=== PATIENT | female | born 1960 | race Caucasian/White ===

== ENCOUNTER 2017-01-27 15:47 | Observation (INO) | payer OTHER ==
[~2017-01-27] VITALS: Ht 167.6 cm; Wt 85.0 kg
[~2017-01-27 15:47] MED LIST: TAMO20TA4 PO; VITRTAB3 PO
[2017-01-27 15:48] VITALS: BP 134/80; PULSE 78; RESP 20; TEMP 98.6; O2SAT 99
[2017-01-27 16:29] LABS: AUTOMATED NEUTROPHIL # 4.8 TH/MM3 (1.8-7.7); BASOPHIL # 0.1 TH/MM3 (0-0.2); BASOPHIL % 0.9 % (0.0-2.0); EOSINOPHIL # 0.3 TH/MM3 (0-0.4); EOSINOPHIL % 3.8 % (0.0-4.0); HEMATOCRIT 38.5 % (35.0-46.0); HEMO FLAGS DIFF FINAL; LYMPH % 29.1 % (9.0-44.0); LYMPHOCYTE # 2.4 TH/MM3 (1.0-4.8); MEAN CELL VOLUME 79.7 FL (80.0-100.0); MEAN CORPUSCULAR HEMOGLOBIN 27.5 PG (27.0-34.0); MEAN CORPUSCULAR HGB CONC 34.5 % (32.0-36.0); MONO % 7.8 % (0.0-8.0); NEUT % 58.4 % (16.0-70.0); PLATELET COUNT 252 TH/MM3 (150-450); RED BLOOD COUNT 4.82 MIL/MM3 (4.00-5.30); RED CELL DISTRIBUTION WIDTH 13.8 % (11.6-17.2); WHITE BLOOD COUNT 8.2 TH/MM3 (4.0-11.0)
[2017-01-27 16:37] LABS: ANION GAP 10 MEQ/L (5-15); BICARBONATE 24.7 MEQ/L (21.0-32.0); BLOOD UREA NITROGEN 11 MG/DL (7-18); CHLORIDE 105 MEQ/L (98-107); GLOMERULAR FILTRATION RATE 71 ML/MIN (>89); POTASSIUM 3.5 MEQ/L (3.5-5.1); SODIUM (NA) 140 MEQ/L (136-145)
[2017-01-27 16:44] LABS: CREATINE KINASE 57 U/L (26-192)
[2017-01-27] MEDS ORDERED: [UNRECOGNIZED DRUG - CODE] PO (17:37)
[2017-01-27] MEDS ORDERED: LISI20TA PO (17:38)
[2017-01-27] MEDS ORDERED: KETOROLAC TROMETHAMINE 30 MG/ML (IVP) VIAL IV PUSH ONE (18:00)
--- NOTE | 2017-01-27 18:00 | PD ---
HPI Chief Complaint: Cardiac Complaint Time Seen by Provider: 17:50 Travel History International Travel<30 days: No Contact w/Intl Traveler<30days: No Traveled to known affect area: No History of Present Illness HPI Patient's 56-year-old female presenting to emergency evaluation of left anterior chest wall pain that radiates to her left arm. Patient states he started last night, waking her up from her sleep. Patient reports the pain as a 6 out of 10 and describes it as sore and aching. Patient states the pain is worse with respirations.. She denies any shortness of breath, nausea, vomiting , headache, abdominal pain. Patient states that last night she took 2 Xanax 0.5 mg tablets tramadol in order to relieve the pain. This was unsuccessful. Patient's past medical history significant for breast cancer, she is currently on tamoxifen. She denies any history of DVT or PE. Family history is significant, her father of a heart attack at age 44, mother with coronary artery disease and stent placement. PFSH Past Medical History Asthma: Yes Blood Disorders: No Heart Rhythm Problems: No Cancer: Yes (RIGHT BREAST CA, LUMPECTOMY 2013, RADIATION/TAMOXIFEN) Cardiac Catheterization: No High Cholesterol: Yes Chemotherapy: No (tomaxifan for r breast Ca+) Congestive Heart Failure: No Diabetes: Yes (GESTATIONAL) Patient Takes Glucophage: No Diminished Hearing: No Endocrine: Yes Genitourinary: No Hepatitis: No Hiatal Hernia: No Hypertension: Yes Immune Disorder: No Neurologic: No Psychiatric: No Reproductive: No Respiratory: Yes Myocardial Infarction: No Radiation Therapy: Yes Thyroid Disease: No ?: Not Tubal Ligation: Yes Past Surgical History AICD: No Cholecystectomy: Yes Coronary Artery Bypass Graft: No Gynecologic Surgery: Yes (TUBAL LIGATION) Hysterectomy: Yes Joint Replacement: No Mastectomy: Yes (RIGHT) Pacemaker: No Tonsillectomy: Yes Other Surgery: Yes (RHINOPLASTY) Family History Family Myocardial Infarction: Yes (FATHER, PATERNAL GRANDFATHER) Social History Alcohol Use: Yes (occ) Tobacco Use: No Substance Use: No Allergies-Medications (Allergen,Severity, Reaction): Coded Allergies: No Known Allergies (Unverified , 01/27/17) Reported Meds & Prescriptions Reported Meds & Active Scripts Active Reported Lisinopril-Hctz 20-12.5 Mg Tab 1 Tab PO DAILY Soltamox Liq (Tamoxifen Citrate) 10 Mg/5 Ml Soln 20 Mg PO DAILY Review of Systems Except as stated in HPI: all other systems reviewed are Neg Eyes: No: Blurred Vision HENT: No: Headaches, Lightheadedness Cardiovascular: Positive: Chest Pain or Discomfort, No: Diaphoresis Respiratory: Positive: Pleuritic Pain, No: Cough, Shortness of Breath Gastrointestinal: No: Nausea, Abdominal Pain Physical Exam Narrative GENERAL: [Well-developed, well-nourished, alert female. Resting comfortably in no acute distress. SKIN: Focused skin assessment warm/dry. HEAD: Atraumatic. Normocephalic. EYES: Pupils equal and round. No scleral icterus. No injection or drainage. ENT: No nasal bleeding or discharge. Mucous membranes pink and moist. NECK: Trachea midline. No JVD. CARDIOVASCULAR: Regular rate and rhythm. No murmur appreciated. RESPIRATORY: No accessory muscle use. Clear to auscultation. Breath sounds equal bilaterally. GASTROINTESTINAL: Abdomen soft, non-tender, nondistended. Hepatic and splenic margins not palpable. MUSCULOSKELETAL: No obvious deformities. No clubbing. No cyanosis. No edema. Pain is mildly reproducible on palpation to left anterior chest wall. NEUROLOGICAL: Awake and alert. No obvious cranial nerve deficits. Motor grossly within normal limits. Normal speech. PSYCHIATRIC: Appropriate mood and affect; insight and judgment normal. Data Data Last Documented VS Vital Signs Date Time Temp Pulse Resp B/P Pulse Ox O2 Delivery O2 Flow Rate FiO2 01/27/17 19:30 71 18 147/95 97 Room Air 01/27/17 15:48 98.6 Orders Electrocardiogram (01/27/17 15:55) Complete Blood Count With Diff (01/27/17 15:55) Basic Metabolic Panel (Bmp) (01/27/17 15:55) Ckmb (Isoenzyme) Profile (01/27/17 15:55) Troponin I (01/27/17 15:55) Chest, Single Ap (01/27/17 ) Ct Pulmonary Angiogram (01/27/17 ) Ketorolac Inj (Toradol Inj) (01/27/17 18:00) Iohexol 350 Inj (Omnipaque 350 Inj) (01/27/17 20:00) Activity Bed Rest With Brp (01/27/17 21:39) Vital Signs (Adult) Q4H (01/27/17 21:39) Cardiac Rhythm .As Directed (01/27/17 21:39) Notify Dr: Other .PRN (01/27/17 21:39) Notify Parameters (01/27/17 21:39) Resp Oxygen Nasal Cannula (01/27/17 ) Ckmb (Isoenzyme) Profile (01/27/17 21:39) Ckmb (Isoenzyme) Profile (01/28/17 00:39) Troponin I (01/27/17 21:39) Troponin I (01/28/17 00:39) Electrocardiogram (01/27/17 21:39) Electrocardiogram (01/28/17 00:39) ^ Obtain (01/27/17 21:39) Underwriting Internship / Telemetry CONNIE.Q8H (01/27/17 21:39) Admit Order (Ed Use Only) (01/27/17 21:39) Labs Laboratory Tests Test 01/27/17 16:07 White Blood Count 8.2 TH/MM3 Red Blood Count 4.82 MIL/MM3 Hemoglobin 13.3 GM/DL Hematocrit 38.5 % Mean Corpuscular Volume 79.7 FL Mean Corpuscular Hemoglobin 27.5 PG Mean Corpuscular Hemoglobin 34.5 % Concent Red Cell Distribution Width 13.8 % Platelet Count 252 TH/MM3 Mean Platelet Volume 7.9 FL Neutrophils (%) (Auto) 58.4 % Lymphocytes (%) (Auto) 29.1 % Monocytes (%) (Auto) 7.8 % Eosinophils (%) (Auto) 3.8 % Basophils (%) (Auto) 0.9 % Neutrophils # (Auto) 4.8 TH/MM3 Lymphocytes # (Auto) 2.4 TH/MM3 Monocytes # (Auto) 0.6 TH/MM3 Eosinophils # (Auto) 0.3 TH/MM3 Basophils # (Auto) 0.1 TH/MM3 CBC Comment DIFF FINAL Differential Comment Sodium Level 140 MEQ/L Potassium Level 3.5 MEQ/L Chloride Level 105 MEQ/L Carbon Dioxide Level 24.7 MEQ/L Anion Gap 10 MEQ/L Blood Urea Nitrogen 11 MG/DL Creatinine 0.83 MG/DL Estimat Glomerular Filtration 71 ML/MIN Rate Random Glucose 107 MG/DL Calcium Level 8.8 MG/DL Total Creatine Kinase 57 U/L Troponin I LESS THAN 0.02 NG/ML MDM Medical Decision Making Medical Screen Exam Complete: Yes Emergency Medical Condition: Yes Interpretation(s) Vital Signs Date Time Temp Pulse Resp B/P Pulse Ox O2 Delivery O2 Flow Rate FiO2 01/27/17 17:39 80 18 99 Room Air 01/27/17 15:48 98.6 78 20 134/80 99 Room Air Differential Diagnosis Acute coronary syndrome versus cardiac arrhythmia versus electrolyte abnormality versus pulmonary embolus versus pleurisy versus other Narrative Course 56-year-old female presenting to the emergency department evaluation of chest pain that started during the night waking her up from sleep. Her vital signs are stable, she does have risk factors for pulmonary embolism currently being treated for breast cancer. Additionally her family history is significant for early onset heart disease. Initial set of cardiac enzymes are negative, CBC is unremarkable. CT pulmonary angiogram, Chest x-ray ordered and pending. EKG shows sinus rhythm with a rate of 78. Chest x-ray shows no acute disease Care of patient transferred to my attending physician who will determine patient 's disposition. Zuleyka Stewart January 27, 2017 18:00
--- NOTE | 2017-01-27 18:14 | RADRPT ---
EXAM DATE/TIME: 01/27/2017 17:51 [facility] COMPARISON: CHEST SINGLE AP, October 11, 2014, 13:12. INDICATIONS : Chest pain. MEDICAL HISTORY : Hypertension. Carcinoma, breast. SURGICAL HISTORY : Mastectomy, right. ENCOUNTER: Initial ACUITY: 2 days PAIN SCORE: 6/10 LOCATION: Bilateral chest FINDINGS: A single view of the chest demonstrates the lungs to be symmetrically aerated without evidence of mas s, infiltrate or effusion. The cardiomediastinal contours are unremarkable. Osseous structures are intact. CONCLUSION: No evidence of acute cardiopulmonary disease. Jacky Caro MD on January 27, 2017 at 18:12 Board Certified Radiologist. This report was verified electronically.
[2017-01-27 19:30] VITALS: BP 147/95; PULSE 71; RESP 18; O2SAT 97
[2017-01-27] MEDS ORDERED: IOHEXOL 350 MG/ML 10 ML VIAL (for RAD DIAG) IV ONE (20:00)
--- NOTE | 2017-01-27 20:20 | RADRPT ---
EXAM DATE/TIME: 01/27/2017 19:55 [facility] COMPARISON: CHEST SINGLE AP, January 27, 2017, 17:51. INDICATIONS : Chest pain. IV CONTRAST: 70 cc Omnipaque 350 (iohexol) IV RADIATION DOSE: 22.97 CTDIvol (mGy) MEDICAL HISTORY : Hypertension. Carcinoma, breast. SURGICAL HISTORY : None. ENCOUNTER: Initial ACUITY: 1 day PAIN SCALE: 5/10 LOCATION: chest TECHNIQUE: Volumetric scanning of the chest was performed using a pulmonary embolism protocol MIP images were re constructed. Using automated exposure control and adjustment of the mA and/or kV according to patien t size, radiation dose was kept as low as reasonably achievable to obtain optimal diagnostic quality images. FINDINGS: PULMONARY ARTERIES: No filling defects are seen in the pulmonary arteries through the segmental level. LUNGS: There is no consolidation or pneumothorax . No concerning pulmonary nodule is visualized. PLEURAE: There is no pleural thickening or pleural effusion. MEDIASTINUM: There is good visualization of the great vessels of the middle mediastinum. No evidence of mediastin al or hilar adenopathy/mass. Heart size normal. No perceptible coronary artery calcification. MUSCULOSKELETAL: Within normal limits for patient age. MISCELLANEOUS: The visualized upper abdominal organs demonstrate no acute abnormality. CONCLUSION: No pulmonary embolus or other acute abnormality demonstrated. Jacky Caro MD on January 27, 2017 at 20:17 Board Certified Radiologist. This report was verified electronically.
[2017-01-27 20:55] VITALS: BP 120/80; PULSE 72; RESP 18; O2SAT 96
[2017-01-27 22:29] VITALS: O2SAT 95
[2017-01-27 22:59] LABS: CREATINE KINASE 43 U/L (26-192)
[2017-01-27 23:07] VITALS: BP 134/72; PULSE 60; RESP 16; TEMP 97.6; O2SAT 96
[2017-01-27 23:40] VITALS: PULSE 69
[2017-01-28 00:09] VITALS: BP 102/62; PULSE 67; RESP 16; TEMP 98; O2SAT 92
[2017-01-28 01:49] LABS: CREATINE KINASE 39 U/L (26-192)
[2017-01-28 04:04] VITALS: BP 106/65; PULSE 62; RESP 16; TEMP 97.7; O2SAT 93
--- NOTE | 2017-01-28 07:55 | HHI.HP ---
HPI Primary Care Physician Jonathan Jain M.D. Chief Complaint Chest pain History of Present Illness 56-year-old female past medical history of hypertension and breast cancer presents emergency room for further evaluation of chest pain. Onset 2 days ago. Location left anterior chest described as "not sharp it just hurts." Radiates to left arm. Breathing does not make pain better or worse. No associated symptoms. Pain has been constant for 24+ hours. No particular movement or position makes pain better or worse. She has never had pain similar to this in the past. No recent illness or trauma to the area. No known precipitating factors. Relieving factors Toradol provided in the ER. States pain returning over the past 45 minutes. Review of Systems General: No fatigue,weakness, fever, chills, recent illness, recent travel, or change in appetite. Has been in her general state of health. History of breast cancer without reoccurrence of breast cancer, currently treatment includes tamoxifen for 5 years. HEENT: No CHAHAL, no vision changes, no nasal congestion or drainage CV: As stated above. States chest pain is restarted approximately 45 minutes ago. No feelings of palpitations. RESP: No SOB, cough, wheeze, or recent URI. Endorses sinus infection and cough that has resolved nearly 2 weeks ago. GI: No nausea, vomiting, bowel changes, diarrhea. : No dysuria, urgency, frequency EXT: No lower leg edema, no paraesthesias MS: No discomfort or change in ROM NEURO: No change in memory, dizziness, difficulty with balance, LOC, motor/ sensory deficits PSYCH: No anxiety, depression, or situational stress. SKIN: No rashes, no concerning lesions Past Family Social History Allergies: Coded Allergies: No Known Allergies (Unverified , 01/27/17) Past Medical History Right breast cancer, hypertension Past Surgical History [id number], tubal ligation Reported Medications Active Reported Lisinopril-Hctz 20-12.5 Mg Tab 1 Tab PO DAILY Soltamox Liq (Tamoxifen Citrate) 10 Mg/5 Ml Soln 20 Mg PO DAILY Active Ordered Medications Current Medications Medications (Trade) Dose Ordered Sig/Shawn Route Start Time Stop Time Status Last Admin (Toradol Inj) 30 mg ONCE ONCE IV PUSH 01/28/17 08:00 01/28/17 08:01 UNV (Tylenol) 500 mg Q4H PRN PO 01/28/17 08:00 UNV (Zofran Inj) 4 mg Q6H PRN IV 01/28/17 08:00 UNV (Nitrostat Sl) 0.4 mg Q5M PRN SL 01/28/17 08:00 UNV (Aspirin) 325 mg DAILY PO 01/28/17 09:00 UNV Family History Father from myocardial infarction age 45 Social History Known hypertension. No known hyperlipidemia or diabetes. Lifelong nonsmoker. Occasional alcohol use. Denies any illegal drug use. , works as a hebrew teacher. Past cardiac testing No recent cardiac testing 11/09/08 Gail scan-EF 54%, no appreciable ischemia Physical Exam Vital Signs Vital Signs Date Time Temp Pulse Resp B/P Pulse Ox O2 Delivery O2 Flow Rate FiO2 01/28/17 04:04 97.7 62 16 106/65 93 01/28/17 00:09 98.0 67 16 102/62 92 01/27/17 23:40 69 01/27/17 23:07 97.6 60 16 134/72 96 01/27/17 22:29 95 21 01/27/17 20:55 72 18 120/80 96 Room Air 01/27/17 19:30 71 18 147/95 97 Room Air 01/27/17 17:39 80 18 99 Room Air 01/27/17 15:48 98.6 78 20 134/80 99 Room Air Physical Exam GENERAL: Alert WN, WD, NAD, pleasant female HEAD: NC, AT EYES: Sclera clear CV: RRR, without murmur, rub, gallop, no JVD, S1-S2 no S3-S4. RESP: Clear lungs throughout bilateral, no crackles, wheeze, rhonchi, symmetrical chest rise, nonlabored, able to speak in full sentences ABD: Soft, NT, ND, no masses, positive bowel tones EXT: Pulses +24, no dependent edema MS: Left anterior chest wall pain reproducible with palpation. Normal tone 4 extremities, nontender, no obvious deformities, full range of motion NEURO: CN II through CN XII grossly intact, motor strength 5/5, gait WNL PSYCH: A+O 3, pleasant affect, appropriate speech, appropriate mood and affect , insight and judgment SKIN: Normal turgor, normal texture, no lesions, no rashes, brisk cap refill, even hair distribution Laboratory Laboratory Tests Test 01/27/17 01/27/17 01/28/17 16:07 22:00 00:46 White Blood Count 8.2 Red Blood Count 4.82 Hemoglobin 13.3 Hematocrit 38.5 Mean Corpuscular Volume 79.7 Mean Corpuscular Hemoglobin 27.5 Mean Corpuscular Hemoglobin 34.5 Concent Red Cell Distribution Width 13.8 Platelet Count 252 Mean Platelet Volume 7.9 Neutrophils (%) (Auto) 58.4 Lymphocytes (%) (Auto) 29.1 Monocytes (%) (Auto) 7.8 Eosinophils (%) (Auto) 3.8 Basophils (%) (Auto) 0.9 Neutrophils # (Auto) 4.8 Lymphocytes # (Auto) 2.4 Monocytes # (Auto) 0.6 Eosinophils # (Auto) 0.3 Basophils # (Auto) 0.1 CBC Comment DIFF FINAL Differential Comment Sodium Level 140 Potassium Level 3.5 Chloride Level 105 Carbon Dioxide Level 24.7 Anion Gap 10 Blood Urea Nitrogen 11 Creatinine 0.83 Estimat Glomerular Filtration 71 Rate Random Glucose 107 Calcium Level 8.8 Total Creatine Kinase 57 43 39 Troponin I LESS THAN 0.02 LESS THAN 0.02 LESS THAN 0.02 Result Diagram: 01/27/17 1607 01/27/17 1607 Imaging Last Impressions Chest X-Ray 01/27/17 0000 Signed Impressions: Service Date/Time: January 17:51 - CONCLUSION: No evidence of acute cardiopulmonary disease. Jacky Caro MD CT Angiography 01/27/17 0000 Signed Impressions: Service Date/Time: January 19:55 - CONCLUSION: No pulmonary embolus or other acute abnormality demonstrated. Jacky Caro MD Course EKGs Multiple EKGs completed- Normal sinus rhythm normal axis, no ST or T-segment changes Assessment and Plan Assessment and Plan #1 Chest painadmitted to chest pain center. Ruled out with 3 EKGs, cardiac enzymes, and monitored overnight. EKG ordered stat for current chest pain. EKG normal sinus bradycardic with no ST or T or T-segment changes. Chest discomfort most likely musculoskeletal in nature. This is been discussed with patient in great length. Patient is highly concerned regarding area of chest discomfort therefore will order chemical stress test for reassurance. If stress test unremarkable will discharge later this afternoon. This is been discussed with patient and at bedside they're both agreeable to plan of care. #2 Musculoskeletal painrepeat Toradol 30 mg IV 1 dose now. #3 History of breast cancercontinue tamoxifen #4 Hypertensioncontinue lisinopril/hydrochlorothiazide Sara Price January 28, 2017 07:55
[2017-01-28 08:00] VITALS: PULSE 72
[2017-01-28] MEDS ORDERED: ACETAMINOPHEN 500 MG CPLT PO PRN (08:00)
[2017-01-28] MEDS ORDERED: SODIUM CHLORIDE 0.9% FLUSH 10 ML FLUSH IV FLUSH PRN (08:00)
[2017-01-28] MEDS ORDERED: ONDANSETRON HCL 4 MG/2 ML VIAL IV PRN (08:00)
[2017-01-28] MEDS ORDERED: NITROGLYCERIN 0.4 MG SL 25 TABS/BTL SL PRN (08:00)
[2017-01-28 08:01] VITALS: O2SAT 95
[2017-01-28] MEDS ORDERED: KETOROLAC TROMETHAMINE 30 MG/ML (IVP) VIAL IV PUSH ONE (08:30)
[2017-01-28] MEDS ORDERED: PILL SPLITTER OTHER PRN (08:30)
[2017-01-28 08:52] VITALS: BP 98/70; PULSE 55; RESP 18; TEMP 96.8; O2SAT 96
[2017-01-28] MEDS ORDERED: NON-FORMULARY DRUG (Lisinopril-Hctz 1 TAB) PO SCH (09:00)
[2017-01-28] MEDS ORDERED: HYDROCHLOROTHIAZIDE 25 MG TAB PO SCH (09:00)
[2017-01-28] MEDS ORDERED: LISINOPRIL 20 MG TAB PO SCH (09:00)
[2017-01-28] MEDS ORDERED: SODIUM CHLORIDE 0.9% FLUSH 10 ML FLUSH IV FLUSH SCH (09:00)
[2017-01-28] MEDS ORDERED: TAMOXIFEN PO SCH (09:00)
[2017-01-28] MEDS ORDERED: ASPIRIN 325 MG TAB PO SCH (09:00)
[2017-01-28] MEDS ORDERED: REGADENOSON INJ 0.4 MG/5 ML SYR ONE (10:41)
--- NOTE | 2017-01-28 11:43 | RADRPT ---
EXAM DATE/TIME: 01/28/2017 10:10 [facility] COMPARISON: No previous studies available for comparison. INDICATIONS : Left sided chest pain radiating to left arm. Angina. DOSE: 25.4 mCi Tc99m Myoview at stress. 8.1 mCi Tc99m Myoview at rest. 0.4 mg Lexiscan STRESS SYMPTOMS: Shortness of breath. EJECTION FRACTION: 67% MEDICAL HISTORY : Carcinoma, breast. Diabetes mellitus type 2. Hypertension. SURGICAL HISTORY : Tubal ligation. Hysterectomy. Mastectomy, right. ENCOUNTER: Initial ACUITY: 1 day PAIN SCALE: 6/10 LOCATION: Left chest TECHNIQUE: The patient underwent pharmacologic stress with infusion of prescribed dose. Continuous ECG tracing was monitored during stress. Gated SPECT imaging was performed after stress and conventional SPECT i maging was performed at rest. The examination was performed on a SPECT/CT scanner, both attenuation and non-corrected datasets were reviewed. FINDINGS: DISTRIBUTION: The maximum perfused segment at stress is in the septal wall. PERFUSION STUDY: The pattern of perfusion at stress is within normal limits. GATED STUDY: There is intact wall motion and thickening without hypokinetic or dyskinetic segments. CONCLUSION: No reversible perfusion defects to suggest ischemia. Normal ejection fraction. RISK CATEGORY: Low (<1% Annual Mortality Rate) Ramakrishna Aparicio MD on January 28, 2017 at 11:40 Board Certified Radiologist. This report was verified electronically.
--- NOTE | 2017-01-28 12:08 | HHI.DCPOC ---
Discharge Care Plan Diagnosis: (1) Musculoskeletal chest pain (2) Hypertension Goals to Promote Your Health * To prevent worsening of your condition and complications * To maintain your health at the optimal level Directions to Meet Your Goals Take your medications as prescribed Follow your dietary instruction Follow activity as directed Keep your appointments as scheduled Take your immunizations and boosters as scheduled If your symptoms worsen call your PCP, if no PCP go to Urgent Care Center or Emergency Room Smoking is Dangerous to Your Health. Avoid second hand smoke Call the 24-hour hour crisis hotline for domestic abuse at Sara Price January 28, 2017 12:07
[2017-01-28] MEDS ORDERED: KETO10 PO (12:23)
--- NOTE | 2017-01-28 12:50 | EKG ---
Date Performed: 01/27/2017 Time Performed: 22:13:08 PTAGE: 56 years EKG: Sinus rhythm NORMAL ECG PREVIOUS TRACING : 01/27/2017 16.03 Since previous tracing, no significant change noted DOCTOR: Cristian Galvan Interpretating Date/Time 01/28/2017 12:49:37
--- NOTE | 2017-01-28 12:52 | EKG ---
Date Performed: 01/27/2017 Time Performed: 16:03:36 PTAGE: 56 years EKG: Sinus rhythm NORMAL ECG PREVIOUS TRACING : 11/19/2014 11.13 Since previous tracing, no significant change noted DOCTOR: Cristian Galvan Interpretating Date/Time 01/28/2017 12:51:18
--- NOTE | 2017-01-28 12:56 | EKG ---
Date Performed: 01/28/2017 Time Performed: 00:49:37 PTAGE: 56 years EKG: Sinus rhythm NORMAL ECG PREVIOUS TRACING : 01/27/2017 22.13 Since previous tracing, no significant change noted DOCTOR: Cristian Galvan Interpretating Date/Time 01/28/2017 12:55:18
--- NOTE | 2017-01-28 12:57 | TR ---
Date Performed: 01/28/2017 Time Performed: 10:49:45 DOCTOR: Cristian Galvan DRUG LIST: CLINICAL HISTORY: CHEST PAIN REASON FOR TEST: CHEST PAIN REASON FOR ENDING: OBSERVATION: CONCLUSION: Patient exercised using the Ander protocol. No electrocardiographic changes were see n to suggest ischemia. Hemodynamic response to exercise was normal. No significant arrhythmia was pre sent. COMMENTS:
--- NOTE | 2017-01-29 16:54 | EKG ---
Date Performed: 01/28/2017 Time Performed: 08:21:05 PTAGE: 56 years EKG: SINUS BRADYCARDIA Compared to prior tracing no significant change BORDERLINE ECG PREVIOUS TRACING : 01/28/2017 00.49 DOCTOR: Lew Childress Interpretating Date/Time 01/29/2017 16:52:34
== END 2017-01-28 13:01 | disposition home or self-care (01) ==
LOC: NEPE 15:47 → NEDA 21:40 → NEPGCP 22:45 → NEDH 01-28 10:35 → NEPGCP 01-28 10:38
PROVIDERS: ADMIT Internal Medicine Cardiovascular Disease; ATTEND Internal Medicine Cardiovascular Disease
DX: R07.89 Other chest pain (principal); M79.1 Myalgia; I10 Essential (primary) hypertension; E78.00 Pure hypercholesterolemia, unspecified; J45.909 Unspecified asthma, uncomplicated; C50.911 Malignant neoplasm of unspecified site of right female breast
CPT/HCPCS: 71010; 71275; 78452; 80048; 82550; 84484; 85025; 85652; 86038; 93005; 93017; 96374; 99285; A9502; G0378; J1885; J2785; Q9967